=== PATIENT | male | born 1980 | race Caucasian/White ===

== ENCOUNTER → 2017-02-11 | Outpatient (CLI) | payer OTHER ==
[~2017-02-11] MED LIST: SUBO4MIS SL; ZOLO100T PO
[2017-02-11 09:34] LABS: BASO # 0.1 10^3/uL (0.0-0.2); BASO % 0.7 % (0.0-1.0); EOS # 0.2 10^3/uL (0.0-0.50); EOS % 3.3 % (0.0-3.0); IMMATURE GRANULOCYTE % 0.9 % (0-0); LYMPH # 2.6 10^3/uL (1.5-4.5); LYMPH % 38.4 % (24.0-44.0); MEAN CORPUSCULAR HEMOGLOBIN 31.7 pg (27.0-33.0); MEAN CORPUSCULAR HGB CONC 35.4 g/dl (32.0-36.5); MEAN CORPUSCULAR VOLUME 89.6 fl (80.0-96.0); MONO # 0.5 10^3/uL (0.0-0.8); NEUTROPHILS # 3.4 10^3/uL (1.8-7.7); NEUTROPHILS % 49.7 % (36.0-66.0); PLATELET COUNT, AUTOMATED 175 10^3/uL (150-450); RED CELL DISTRIBUTION WIDTH 12.9 % (11.5-14.5); WHITE BLOOD COUNT 6.9 10^3/uL (4.0-10.0)
[2017-02-11 09:41] LABS: ALBUMIN 3.8 GM/DL (3.2-5.2); ALBUMIN/GLOBULIN RATIO 1.09 (1.00-1.93); ALKALINE PHOSPHATASE 55 U/L (45-117); ALT/SGPT 145 U/L (12-78); ANION GAP 11 MEQ/L (8-16); AST/SGOT 46 U/L (15-37); BILIRUBIN,TOTAL 0.4 MG/DL (0.2-1.0); BLOOD UREA NITROGEN 17 MG/DL (7-18); CALCIUM LEVEL 8.9 MG/DL (8.5-10.1); CARBON DIOXIDE LEVEL 24 MEQ/L (21-32); CHLORIDE LEVEL 105 MEQ/L (98-107); CREATININE FOR GFR 0.82 MG/DL (0.70-1.30); GLOMERULAR FILTRATION RATE > 60.0 (>60); GLUCOSE, FASTING 92 MG/DL (70-105); POTASSIUM SERUM 4.2 MEQ/L (3.5-5.1); SODIUM LEVEL 140 MEQ/L (136-145); TOTAL PROTEIN 7.3 GM/DL (6.4-8.2)
[2017-02-11 11:14] LABS: HEPATITIS B SURFACE ANTIBODY POSITIVE (POSITIVE)
[2017-02-18 00:06] LABS: ALT 142 IU/L (0-55); GGT 68 IU/L (0-65); HAPTOGLOBIN 48 mg/dL (34-200); HEPATITIS C QUANTITATION 192880 IU/mL (.); HEPATITIS C VIRUS GENOTYPE 3 (.); NECROINFLAM SCORE 0.66 (0.00-0.17); NECROINFLAMM GRADE A3-Severe activity (.); TOTAL BILIRUBIN 0.2 mg/dL (0.0-1.2)
== END ==
LOC: M LAB 08:10
PROVIDERS: ATTEND Nurse Practitioner Adult Health
DX: B18.2 Chronic viral hepatitis C (principal); B16.9 Acute hepatitis B without delta-agent and without hepatic coma; B15.9 Hepatitis A without hepatic coma

== ENCOUNTER → 2017-04-04 | Outpatient (CLI) | payer OTHER ==
[2017-04-04 16:13] LABS: ALBUMIN 3.8 GM/DL (3.2-5.2); ALKALINE PHOSPHATASE 54 U/L (45-117); ALT/SGPT 338 U/L (12-78); ANION GAP 8 MEQ/L (8-16); AST/SGOT 175 U/L (7-37); BILIRUBIN,TOTAL 0.5 MG/DL (0.2-1.0); BLOOD UREA NITROGEN 20 MG/DL (7-18); CALCIUM LEVEL 8.9 MG/DL (8.5-10.1); CARBON DIOXIDE LEVEL 26 MEQ/L (21-32); CHLORIDE LEVEL 107 MEQ/L (98-107); CREATININE FOR GFR 0.78 MG/DL (0.70-1.30); GLOMERULAR FILTRATION RATE > 60.0 (>60); GLUCOSE, FASTING 109 MG/DL (70-105); POTASSIUM SERUM 3.9 MEQ/L (3.5-5.1); SODIUM LEVEL 141 MEQ/L (136-145); TOTAL PROTEIN 7.6 GM/DL (6.4-8.2)
[2017-04-04 18:27] LABS: BASO # 0.1 10^3/uL (0.0-0.2); BASO % 0.8 % (0.0-1.0); EOS # 0.3 10^3/uL (0.0-0.50); EOS % 4.6 % (0.0-3.0); IMMATURE GRANULOCYTE % 0.3 % (0-0); LYMPH % 32.2 % (24.0-44.0); MEAN CORPUSCULAR HEMOGLOBIN 31.5 pg (27.0-33.0); MEAN CORPUSCULAR VOLUME 87.4 fl (80.0-96.0); MONO # 0.5 10^3/uL (0.0-0.8); MONO % 8.3 % (0.0-5.0); NEUTROPHILS # 3.3 10^3/uL (1.8-7.7); NEUTROPHILS % 53.8 % (36.0-66.0); PLATELET COUNT, AUTOMATED 208 10^3/uL (150-450); RED CELL DISTRIBUTION WIDTH 12.1 % (11.5-14.5); WHITE BLOOD COUNT 6.2 10^3/uL (4.0-10.0)
--- NOTE | 2017-04-05 05:05 | REP ---
Clinical: Preoperative assessment . Comparison: None . Technique: PA and lateral. Findings: The mediastinum and cardiac silhouette are normal. The lung hagen are clear and without acute consolidation, effusion, or pneumothorax. The skeletal structures are intact and normal. Impression: 1. No acute cardiopulmonary process. Signed by Ahsutosh Birch MD 04/05/2017 04:56 A
== END ==
LOC: M LAB 14:50
PROVIDERS: ATTEND Nurse Practitioner Adult Health
DX: Z01.818 Encounter for other preprocedural examination (principal)

== ENCOUNTER 2017-04-12 05:42 | Day surgery (SDC) | payer OTHER ==
[~2017-04-12] VITALS: Ht 172.7 cm; Wt 251.3 kg
[2017-04-12] MEDS ORDERED: CEFAZOLIN SOD 1 GM in APPROPRIATE DILUENT 1 EA IV ONE (06:00)
[2017-04-12] MEDS ORDERED: LR 1,000 ML IV ONE (06:00)
[2017-04-12] MEDS ORDERED: IBUP-1022 PO (06:13)
[2017-04-12] MEDS ORDERED: MAVY1TAB PO (06:13)
[2017-04-12 06:29] LABS: INR 0.87
[2017-04-12] MEDS ORDERED: BUPIVACAINE/EPIN 0.5% 30 ML VIAL As Ordered ONE (07:47)
[2017-04-12] MEDS ORDERED: MIDAZOLAM INJ 2 MG/2 ML VIAL (J2250) As Ordered ONE (08:56)
[2017-04-12] MEDS ORDERED: fentaNYL 250 MCG/5 ML INJECTION (J3010) As Ordered ONE (08:56)
[2017-04-12] MEDS ORDERED: ONDANSETRON 4MG/2ML VIAL (J2405) As Ordered ONE (08:57)
[2017-04-12] MEDS ORDERED: ePHEDrine SULFATE 25 MG/5 ML(5MG/ML) SYRINGE As Ordered ONE (08:57)
[2017-04-12] MEDS ORDERED: PROPOFOL 200 MG/20 ML VIAL As Ordered ONE (08:57)
[2017-04-12] MEDS ORDERED: dexameTHASONE 4 MG/ML 1ML VIAL (J1100) As Ordered ONE (08:57)
[2017-04-12] MEDS ORDERED: ROCURONIUM BROMIDE 50 MG/5 ML VIAL As Ordered ONE ×2 (08:57→09:18)
[2017-04-12] MEDS ORDERED: LIDOCAINE 2% INJ 100 MG/5 ML SDV (FOR ANES.) As Ordered ONE (08:57)
[2017-04-12] MEDS ORDERED: HYDROmorphone HCL 2 MG/ML 1ML VIAL (J1170) As Ordered ONE (09:05)
[2017-04-12] MEDS ORDERED: GLYCOPYRROLATE INJ 0.2 MG/ML 2 ML VIAL As Ordered ONE (09:26)
[2017-04-12] MEDS ORDERED: NEOSTIGMINE 10 MG/10 ML VIAL (J2710) As Ordered ONE (09:26)
[2017-04-12] MEDS ORDERED: SUGAMMADEX SODIUM 500 MG/5 ML VIAL (BRIDION) As Ordered ONE (09:38)
[2017-04-12] MEDS ORDERED: NORCO, ANEXSIA 5/325MG TABLET (HYDROcodone/ACETAMINOPHEN) PO PRN (10:15)
[2017-04-12] MEDS ORDERED: fentaNYL 100 MCG/2 ML INJECTION (J3010) IV PRN (10:15)
[2017-04-12] MEDS ORDERED: PERCOCET 5MG/325MG TAB PO PRN ×2 (10:15→10:30)
[2017-04-12] MEDS ORDERED: ONDANSETRON 4MG/2ML VIAL (J2405) IV PRN ×2 (10:15→10:30)
[2017-04-12] MEDS ORDERED: MEPERIDINE INJ 25 MG/ML VIAL (J2175) IV PRN (10:15)
[2017-04-12] MEDS ORDERED: LR 1,000 ML IV SCH ×2 (10:15)
[2017-04-12] MEDS ORDERED: METOCLOPRAMIDE INJ 10MG/2ML VIAL (J2765) IV PRN (10:15)
[2017-04-12] MEDS ORDERED: MORPHINE 4 MG/ML 1ML SYRINGE IV PRN (10:30)
[2017-04-12 10:55] VITALS: BP 140/90
--- NOTE | 2017-04-12 12:58 | RO ---
DATE OF PROCEDURE: 04/12/2017 PREOPERATIVE DIAGNOSIS: Left inguinal hernia. POSTOPERATIVE DIAGNOSIS: Left inguinal hernia (indirect). PROCEDURE: Laparoscopic robotic-assisted left inguinal hernia repair with ProGrip mesh. SURGEON: Telly Haro Jr., MD ANESTHESIA: General endotracheal anesthesia. ESTIMATED BLOOD LOSS (EBL): Minimal. FLUIDS: Crystalloid. DESCRIPTION OF PROCEDURE: Brief procedure summary: The patient was brought to the operating room, was given general anesthesia, and after adequate anesthesia was established and preoperative antibiotics were given, the patient was prepped and draped in the usual sterile fashion. Next, a supraumbilical incision was made with skin knife. Blunt dissection was carried down to fascia. Fascia was grasped with Shamika clamps, elevated, and Veress needle placed into the abdominal cavity, insufflated to 15 mm of pressure. A dilating 5 mm trocar was placed into the abdominal cavity; and under direct visualization, two 8 mm trocars were placed in the right lateral and left lateral abdomen under direct visualization. Next, the supraumbilical site was changed over to the camera port under direct visualization, and the robot was docked. This was docked without difficulty. Next, all instruments were advanced under direct visualization using a 30 degree scope then scissors with cautery was used to score the peritoneum. The patient's median umbilical ligament on the left-hand side was very lateral, and making the incision over the top of this, there was some oozing that was encountered that was controlled with the bipolar cautery. Next, the peritoneal flaps were created using electrocautery and the scissors and staying on the peritoneum, working all across the field, and then working eventually on the medial side down to the pubis/Aaron ligament area. Once this was visualized, dissection lateral to the internal ring was performed, first starting on the peritoneum, working up into the internal ring area, clearing off the peritoneum. There was also a lipoma in the cord that was reduced at the same time. Eventually, after this was reduced and the peritoneum was mobiized off the cord structures, the dissection continued medially towards the vessels, and a nice valley was created in this area with some blunt dissection. Once again, a good portion of the lateral pubis and the Aaron ligament was well visualized, after adequate mobilization, all the tissue at this point, ProGrip mesh was placed in the peritoneum, brought in the preperitoneal space, and then placed in the appropriate position across the Aaron's, pubis, and the tails of the mesh were lateral to the internal ring. This was pressed into place and revealed a good placement of the tissue. Then, a running V-Loc 2-0 Vicryl suture was used to close the incision. All trocars were removed under direct visualization, and 4-0 Vicryl was used to close all incisions. Steri-Strips and a dry sterile dressing was applied. The patient was awakened, extubated, brought to recovery awake, alert, and hemodynamically stable. Sponge and needle counts correct times two. MTDD
== END 2017-04-12 11:30 | disposition home or self-care (01) ==
LOC: M SDC 05:42
PROVIDERS: ATTEND Surgery
DX: K40.90 Unilateral inguinal hernia, without obstruction or gangrene, not specified as recurrent (principal); F32.9 Major depressive disorder, single episode, unspecified; F41.9 Anxiety disorder, unspecified; B19.20 Unspecified viral hepatitis C without hepatic coma; Z79.899 Other long term (current) drug therapy; Z72.0 Tobacco use
CPT/HCPCS: 36415; 49650; 85610; 85730; C1781

== ENCOUNTER 2017-04-15 06:29 | Emergency (ER) | payer OTHER ==
[~2017-04-15] VITALS: Ht 172.7 cm; Wt 90.9 kg
[2017-04-15 06:29] VITALS: BP 147/99
[~2017-04-15 06:29] MED LIST changes: +IBUP-1022 PO; +MAVY1TAB PO
== END 2017-04-15 07:50 | disposition home or self-care (01) ==
LOC: M ED 06:29
DX: F11.20 Opioid dependence, uncomplicated (principal); J00 Acute nasopharyngitis [common cold]; F17.210 Nicotine dependence, cigarettes, uncomplicated

== ENCOUNTER → 2017-04-19 | Outpatient (CLI) | payer OTHER ==
[2017-04-19 10:24] LABS: ALBUMIN 3.6 GM/DL (3.2-5.2); ALBUMIN/GLOBULIN RATIO 0.97 (1.00-1.93); BILIRUBIN,DIRECT 0.1 MG/DL (0.0-0.2); BILIRUBIN,TOTAL 0.5 MG/DL (0.2-1.0); TOTAL PROTEIN 7.3 GM/DL (6.4-8.2)
[2017-04-21 10:15] LABS: HEPATITIS C QUANTITATION HCV Not Detected IU/mL (.)
== END ==
LOC: M LAB 09:14
PROVIDERS: ATTEND Internal Medicine Infectious Disease
DX: B18.2 Chronic viral hepatitis C (principal)

== ENCOUNTER → 2017-10-10 | Outpatient (CLI) | payer MEDICAID | LOC: M OUTALCOH 07:57 | DX: Z13.9 Encounter for screening, unspecified (principal); F11.20 Opioid dependence, uncomplicated; F12.20 Cannabis dependence, uncomplicated; F15.20 Other stimulant dependence, uncomplicated ==

== ENCOUNTER 2017-10-19 15:16 | Outpatient (RCR) | payer MEDICAID | END 2017-10-29 | LOC: M OUTALCOH 10-24 13:30 | DX: F11.20 Opioid dependence, uncomplicated (principal); F15.20 Other stimulant dependence, uncomplicated; F12.20 Cannabis dependence, uncomplicated; F17.200 Nicotine dependence, unspecified, uncomplicated ==

== ENCOUNTER 2017-11-07 11:07 | Outpatient (RCR) | payer MEDICAID | END 2017-11-29 | LOC: M OUTALCOH 11-21 14:00 | DX: F11.20 Opioid dependence, uncomplicated (principal); F15.20 Other stimulant dependence, uncomplicated; F12.20 Cannabis dependence, uncomplicated; F17.200 Nicotine dependence, unspecified, uncomplicated ==

== ENCOUNTER 2018-01-23 08:57 | Outpatient (RCR) | payer MEDICAID | END 2018-01-29 | LOC: M OUTALCOH 08:57 | DX: F11.20 Opioid dependence, uncomplicated (principal); F15.20 Other stimulant dependence, uncomplicated; F12.20 Cannabis dependence, uncomplicated; F17.200 Nicotine dependence, unspecified, uncomplicated ==

== ENCOUNTER 2018-02-08 13:00 | Outpatient (RCR) | payer MEDICAID | END 2018-03-01 | LOC: M OUTALCOH 02-14 16:00 | DX: F11.20 Opioid dependence, uncomplicated (principal); F15.20 Other stimulant dependence, uncomplicated; F12.20 Cannabis dependence, uncomplicated; F17.200 Nicotine dependence, unspecified, uncomplicated ==

== ENCOUNTER 2018-03-16 15:34 | Outpatient (RCR) | payer MEDICAID | END 2018-03-31 | LOC: M OUTALCOH 15:34 | DX: F11.20 Opioid dependence, uncomplicated (principal); F15.20 Other stimulant dependence, uncomplicated; F12.20 Cannabis dependence, uncomplicated; F17.200 Nicotine dependence, unspecified, uncomplicated ==

== ENCOUNTER 2018-07-31 21:11 | Emergency (ER) | payer MEDICAID, OTHER ==
[~2018-07-31] VITALS: Ht 172.7 cm; Wt 90.0 kg
[2018-08-01] MEDS ORDERED: KETOROLAC 30 MG/ML VIAL (J1885) IV ONE
[2018-08-01] MEDS ORDERED: CLINDAMYCIN 900 MG in APPROPRIATE DILUENT 1 EA IV ONE ×2
[2018-08-01 00:36] LABS: BASO # 0.1 10^3/uL (0.0-0.2); BASO % 0.3 % (0.0-1.0); EOS # 0.3 10^3/uL (0.0-0.50); EOS % 1.9 % (0.0-3.0); HEMATOCRIT 41.1 % (42.0-52.0); HEMOGLOBIN 14.6 g/dl (13.5-17.5); LYMPH # 3.5 10^3/uL (1.5-4.5); LYMPH % 19.9 % (24.0-44.0); MEAN CORPUSCULAR HEMOGLOBIN 31.3 pg (27.0-33.0); MEAN CORPUSCULAR HGB CONC 35.5 g/dl (32.0-36.5); MONO # 1.8 10^3/uL (0.0-0.8); NEUTROPHILS # 11.8 10^3/uL (1.8-7.7); NEUTROPHILS % 67.6 % (36.0-66.0); PLATELET COUNT, AUTOMATED 211 10^3/uL (150-450); RED BLOOD COUNT 4.67 10^6/uL (4.30-6.10); WHITE BLOOD COUNT 17.5 10^3/uL (4.0-10.0)
[2018-08-01] MEDS ORDERED: CLEO300C2 PO (01:13)
[2018-08-01] MEDS ORDERED: IBUP-1022 PO (01:13)
[2018-08-01] MEDS ORDERED: LIDOCAINE 1% MDV 20ML VIAL As Ordered ONE (01:17)
[2018-08-01 01:23] LABS: BLOOD UREA NITROGEN 17 MG/DL (7-18); C REACTIVE PROTEIN QUANTITATIV 7.19 MG/DL (0.00-0.30); CALCIUM LEVEL 8.8 MG/DL (8.5-10.1); CARBON DIOXIDE LEVEL 26 MEQ/L (21-32); CHLORIDE LEVEL 103 MEQ/L (98-107); CREATININE FOR GFR 0.84 MG/DL (0.70-1.30); GLOMERULAR FILTRATION RATE > 60.0 (>60); GLUCOSE, FASTING 94 MG/DL (70-100); POTASSIUM SERUM 4.2 MEQ/L (3.5-5.1); SODIUM LEVEL 135 MEQ/L (136-145)
[2018-08-01] MEDS ORDERED: LIDOCAINE 1% MDV 20ML VIAL SC ONE (01:30)
[2018-08-01 01:45] VITALS: BP 121/83
[2018-08-01 01:56] LABS: ERYTHROCYTE SEDIMENTATION RATE 35 mm/hr (0-15)
--- NOTE | 2018-08-01 02:49 | REPVR ---
EXAM: US Right Non-Vascular Joint or Other Extremity Structure, Limited Upper Extremity EXAM DATE/TIME: 08/01/2018 1:16 AM CLINICAL HISTORY: 37 years old, male; Signs and symptoms; Cellulitis and edema; Edema is localized; Hand; Right; Additional info: Right hand infection R/O abscess TECHNIQUE: Imaging protocol: Right US Non-Vascular Joint or Other Extremity Structure. Limited exam of the upper extremity. COMPARISON: No relevant prior studies available. FINDINGS: Scanning of the right hand in the area of interest demonstrates a complex fluid collection measuring 2.8 x 1.0 x 2.8 cm. IMPRESSION: Complex fluid collection in the right hand consistent with abscess measuring 2.8 x 1.0 x 2.8 cm. Electronically signed by: Gianfranco Salas On 08/01/2018 02:48:31 AM
== END 2018-08-01 01:47 | disposition home or self-care (01) ==
LOC: M ED 21:11
DX: L02.511 Cutaneous abscess of right hand (principal); L03.113 Cellulitis of right upper limb; F19.10 Other psychoactive substance abuse, uncomplicated; Z86.19 Personal history of other infectious and parasitic diseases; Z72.0 Tobacco use; Z79.899 Other long term (current) drug therapy
CPT/HCPCS: 10021; 10061; 36415; 76882; 80048; 85025; 85652; 86140; 87040; 87070; 87205; 96365; 96375; 99284; J1885

== ENCOUNTER 2018-09-20 13:07 | Emergency (ER) | payer OTHER ==
[~2018-09-20 13:07] MED LIST changes: +CLEO300C2 PO
== END 2018-09-20 14:06 | disposition left against medical advice (07) ==
LOC: M ED 13:07 → EDBD 13:07 → M ED 14:06
DX: F11.129 Opioid abuse with intoxication, unspecified (principal)

== ENCOUNTER → 2019-07-06 | Outpatient (REF) | LOC: M LAB 16:47 ==